=== PATIENT | female | born 1950 | race Caucasian/White ===

== ENCOUNTER 2017-07-30 12:39 | Emergency (ER) | payer MEDICARE, BC ==
[2017-07-30] MEDS ORDERED: Lidocaine 1% 30 ML SDV INJECT ONE (14:13)
[2017-07-30] MEDS ORDERED: HYDROmorphone 1 MG/ML Syringe IVPUSH ONE (14:17)
[2017-07-30] MEDS ORDERED: Diphtheria,Pertussis(Acell),Tetanus Vaccine 0.5 ML SDV IM ONE (14:45)
--- NOTE | 2017-07-30 18:14 | EDM.PDOC ---
Scribed by Christine Reyes 07/30/17 [id number] for Geri Taylor NP ED HPI GENERAL MEDICAL PROBLEM - General Chief Complaint: Laceration Stated Complaint: IN BY AMBULANCE Time Seen by Provider: 07/30/17 13:00 Source of Information: Reports: Patient, Family, RN, RN Notes Reviewed History Limitations: Reports: No Limitations - History of Present Illness INITIAL COMMENTS - FREE TEXT/NARRATIVE: Pt presents to ER per [facility] with a c-collar applied, [place]. She states she thinks her shoes caused her to fall. She states she hit her head on a curved wooden arm of a chair when she fell. She states she is unsure if she lost consciousness or not, but she does not think so. She c/o headache and is very concerned she could have a head bleed. Onset: Today, Sudden Location: Reports: Head Quality: Reports: Throbbing Severity: Moderate Improves with: Reports: None Worsens with: Reports: None Associated Symptoms: Reports: No Other Symptoms Head Pain Score (Numeric/FACES): 4 - Related Data Allergies Allergy/AdvReac Type Severity Reaction Status Date / Time cephalexin [From Keflex] Allergy Rash Verified 07/30/17 12:44 codeine Allergy Abdominal Verified 07/30/17 12:44 Pain Home Meds: Home Meds Anastrozole [Arimidex] 1 mg PO DAILY 07/30/17 [History] Calcium Carbonate [Calcium] 500 mg PO DAILY 07/30/17 [History] Cholecalciferol (Vitamin D3) [Vitamin D] 1,000 unit PO DAILY 07/30/17 [History] Cyanocobalamin/FA/Pyridoxine [B Complex-Folic Acid] 1 tab PO DAILY 07/30/17 [ History] Esomeprazole Magnesium [Nexium] 40 mg PO 07/30/17 [History] Fexofenadine [Batsheva] 180 mg PO DAILY 07/30/17 [History] L. Acidophilus/Pectin, Ava [Acidophilus Capsule] 1 tab PO DAILY 07/30/17 [ History] Lisinopril/Hydrochlorothiazide [Lisinopril-Hctz 20-25 mg Tab] 1 tab PO DAILY 08/05 [History] Metoprolol Tartrate 25 mg PO BID 07/30/17 [History] Multivitamin [Multi-Vitamin Daily] 1 tab PO DAILY 07/30/17 [History] Potassium Chloride [Klor-Con M20] 20 meq PO DAILY 07/30/17 [History] Simvastatin [Zocor] 20 mg PO BEDTIME 07/30/17 [History] Vitamin B Comp W-C/FA/Zinc [Lucretia B Strong with C & Zinc Tb] 1 each PO DAILY 08/05 [History] Past Medical History HEENT History: Reports: Cataract, Other (See Below) Other HEENT History: TMJ Cardiovascular History: Reports: High Cholesterol, Hypertension Oncologic (Cancer) History: Reports: Breast - Past Surgical History GI Surgical History: Reports: Cholecystectomy Female Surgical History: Reports: Mastectomy, Tubal Ligation Musculoskeletal Surgical History: Reports: Knee Replacement, Other (See Below) Other Musculoskeletal Surgeries/Procedures:: plate in right thumb Oncologic Surgical History: Reports: Mastectomy Social & Family History - Family History Family Medical History: Noncontributory - Tobacco Use Smoking Status *Q: Never Smoker - Caffeine Use Caffeine Use: Reports: None - Recreational Drug Use Recreational Drug Use: No ED ROS GENERAL - Review of Systems Review Of Systems: ROS reveals no pertinent complaints other than HPI. ED EXAM, SKIN/RASH Exam: See Below Exam Limited By: No Limitations General Appearance: Alert, WD/WN, No Apparent Distress Eye Exam: Bilateral Eye: Normal Inspection Ears: Normal External Exam, Hearing Grossly Normal Nose: Normal Inspection, Normal Mucosa, No Blood Throat/Mouth: Normal Inspection, Normal Lips, Normal Teeth, Normal Gums, Normal Oropharynx, Normal Voice, No Airway Compromise Head: Normocephalic, Other (laceration to midline scalp) Neck: Normal Inspection, Supple, Non-Tender, Full Range of Motion Respiratory/Chest: No Respiratory Distress, Lungs Clear, Normal Breath Sounds, No Accessory Muscle Use, Chest Non-Tender Cardiovascular: Normal Peripheral Pulses, Regular Rate, Rhythm, No Edema, No Gallop, No JVD, No Murmur, No Rub Peripheral Pulses: 2+: Radial (L), Radial (R) GI/Abdominal: Normal Bowel Sounds, Soft, Non-Tender (Female) Exam: Deferred Rectal (Female) Exam: Deferred Back Exam: Normal Inspection, Full Range of Motion, Vertebral Tenderness ( cervical spine) Extremities: Normal Inspection, Normal Range of Motion, Non-Tender, No Pedal Edema, Normal Capillary Refill Neurological: Alert, Oriented, CN II-XII Intact, Normal Cognition, Normal Reflexes, No Motor/Sensory Deficits Psychiatric: Normal Affect, Normal Mood Skin: Warm, Dry, Normal Color, No Rash, Wound/Incision (laceration, 5cm) Location, Skin: Head Characteristics: Linear Lymphatic: No Adenopathy ED SKIN PROCEDURES - Laceration/Wound Repair Middle Mid-Posterior Midline Head Lac/Wound length In cm: 5 Appearance: Subcutaneous Distal NVT: Neuro & Vascular Intact Anesthetic Type: Local Local Anesthesia - Lidocaine (Xylocaine): 1% Plain Local Anesthetic Volume: 4cc Skin Prep: Chlorhexidine (Hibiciens) Exploration/Debridement/Repair: Wound Explored, In a Bloodless Field, Explored to Base, No Foreign Material Found Closed with: [place] # of Sutures: 8 Drain Placement: No Sterile Dressing Applied: Nurse Tetanus Status Addressed: Yes Complications: No Course - Vital Signs Last Recorded V/S: Last Vital Signs Temp 97.6 F 07/30/17 12:49 Pulse 85 07/30/17 12:49 Resp 18 07/30/17 12:49 BP 149/86 H 07/30/17 12:49 Pulse Ox 100 07/30/17 12:49 - Orders/Labs/Meds Orders: Active Orders 24 hr Category Date Time Status Vaccines to be Administered [RC] PER UNIT ROUTINE Care 07/30/17 14:45 Active Meds: Medications Discontinued Medications Generic Name Dose Route Start Last Admin Trade Name Freq PRN Reason Stop Dose Admin Diphtheria/Tetanus/Acell Pertussis 0.5 ml 07/30/17 14:45 07/30/17 14:52 Adacel IM 07/30/17 14:46 0.5 ml .ONCE ONE Administration Hydromorphone HCl 0.5 mg 07/30/17 14:17 07/30/17 14:26 Dilaudid IVPUSH 07/30/17 14:18 0.5 mg ONETIME ONE Administration Lidocaine HCl 30 ml 07/30/17 14:13 07/30/17 14:20 Xylocaine-Mpf 1% INJECT 07/30/17 14:14 30 ml ONETIME ONE Administration - Radiology Interpretation Free Text/Narrative:: Head CT: No acute findings by rad report. CT cervical spine: No bony injury. Multilevel degenerative changes. See rad report. Departure - Departure Time of Disposition: 14:42 Disposition: Home, Self-Care 01 Condition: Fair Clinical Impression: Laceration of scalp Qualifiers: Encounter type: initial encounter Qualified Code(s): S01.01XA - Laceration without foreign body of scalp, initial encounter Contusion of scalp Qualifiers: Encounter type: initial encounter Qualified Code(s): S00.03XA - Contusion of scalp, initial encounter - Discharge Information Instructions: Laceration Care, Adult, [id number], Stitches, Sandro, or Adhesive Wound Closure, [id number] Forms: ED Department Discharge Additional Instructions: You may shower, do not scrub the area. Pat dry with a towel. Follow up with your primary care facility to have the sandro removed in 7-10 days. May take Tylenol or ibuprofen as directed for headache. - My Orders Last 24 Hours: My Active Orders 07/30/17 14:45 Vaccines to be Administered [RC] PER UNIT ROUTINE - Assessment/Plan Last 24 Hours: My Active Orders 07/30/17 14:45 Vaccines to be Administered [RC] PER UNIT ROUTINE I have read and agree with the documentation that has been completed regarding this visit. By signing this record, I attest that the documentation was completed in my physical presence and is an accurate record of the encounter.
== END 2017-07-30 14:59 | disposition home or self-care (01) ==
LOC: DL.ED 12:39
DX: S01.01XA Laceration without foreign body of scalp, initial encounter (principal); I10 Essential (primary) hypertension; Z88.1 Allergy status to other antibiotic agents; Z88.5 Allergy status to narcotic agent; Z79.899 Other long term (current) drug therapy; W01.10XA Fall on same level from slipping, tripping and stumbling with subsequent striking against unspecified object, initial encounter
CPT/HCPCS: 12002; 70450; 72125; 90715; 99284; J1170; 96372; 96374